=== PATIENT | female | born 1955 | race Caucasian/White ===

== ENCOUNTER 2017-07-23 09:07 | Day surgery (SDC) | payer BC, OTHER ==
[2017-07-23] MEDS: NS 1,000 ML IV (09:30)
[2017-07-23] MEDS ORDERED: PROPOFOL 200 MG/20 ML VIAL As Ordered ×2 (10:52→11:07)
== END 2017-07-23 11:42 | disposition home or self-care (01) ==
LOC: M OPP 09:07
DX: Z12.11 Encounter for screening for malignant neoplasm of colon (principal); Z80.0 Family history of malignant neoplasm of digestive organs; K58.9 Irritable bowel syndrome, unspecified; F41.9 Anxiety disorder, unspecified; R51 Headache; Z87.891 Personal history of nicotine dependence; Z79.899 Other long term (current) drug therapy
CPT/HCPCS: G0105

== ENCOUNTER → 2017-10-26 | Outpatient (REF) | payer OTHER ==
[2017-10-26 12:49] LABS: VITAMIN B12 LEVEL 357 PG/ML (247-911)
[2017-10-26 12:50] LABS: FOLATE 19.3 NG/ML (>5.4)
== END ==
LOC: M LAB REF 12:00
DX: R41.3 Other amnesia (principal)

== ENCOUNTER → 2018-01-06 | Outpatient (CLI) | payer BC, OTHER ==
[~2018-01-06] MED LIST: E-Z-GAS II EFFERVESCENT PACKET (SODIUM BICARB./CITRIC ACID/SIMETHICONE) As Ordered; E-Z-HD 98% w/w 340GM SUSP BTL As Ordered; E-Z-PAQUE 96% w/w SUSP 176GM BTL As Ordered
== END ==
LOC: M RAD 09:25
DX: R13.10 Dysphagia, unspecified (principal)
CPT/HCPCS: 74220

== ENCOUNTER 2018-03-08 12:53 | Day surgery (SDC) | payer BC, OTHER ==
[~2018-03-08 12:53] MED LIST changes: -E-Z-GAS II EFFERVESCENT PACKET (SODIUM BICARB./CITRIC ACID/SIMETHICONE) As Ordered; -E-Z-HD 98% w/w 340GM SUSP BTL As Ordered; -E-Z-PAQUE 96% w/w SUSP 176GM BTL As Ordered; +LIDOCAINE 2% INJ 100 MG/5 ML SDV (FOR ANES.) As Ordered; +PROPOFOL 200 MG/20 ML VIAL As Ordered; +fentaNYL 100 MCG/2 ML INJECTION (J3010) As Ordered
[2018-03-08] MEDS ORDERED: NS 1,000 ML IV (13:30)
== END 2018-03-08 15:52 | disposition home or self-care (01) ==
LOC: M OPP 12:53
DX: R13.10 Dysphagia, unspecified (principal); R10.12 Left upper quadrant pain; Q39.4 Esophageal web; K58.9 Irritable bowel syndrome, unspecified; M51.9 Unspecified thoracic, thoracolumbar and lumbosacral intervertebral disc disorder; F41.9 Anxiety disorder, unspecified; R51 Headache; Z87.891 Personal history of nicotine dependence; Z79.899 Other long term (current) drug therapy; Z80.0 Family history of malignant neoplasm of digestive organs
CPT/HCPCS: 43450

== ENCOUNTER → 2018-06-11 | Outpatient (REF) | payer OTHER ==
[~2018-06-11] MED LIST changes: +CLON1TAB8 PO; +HYDR-3363 PO; +HYOS1TAB PO; -LIDOCAINE 2% INJ 100 MG/5 ML SDV (FOR ANES.) As Ordered; +MAGO400T PO; -PROPOFOL 200 MG/20 ML VIAL As Ordered; +PROTPAK PO; +VITA200016 PO; +WELLTAB40 PO; -fentaNYL 100 MCG/2 ML INJECTION (J3010) As Ordered
== END ==
LOC: M WUC 10:12
PROVIDERS: ATTEND Physician Assistant
DX: N39.0 Urinary tract infection, site not specified (principal)

== ENCOUNTER → 2018-09-29 | Outpatient (CLI) | payer BC, OTHER ==
--- NOTE | 2018-09-30 01:06 | REP ---
Clinical: Lateral foot/fifth toe pain Technique: AP, lateral, bilateral oblique views left foot . Findings: Generalized age-related degenerative changes are appreciated. There appears to be a subtle corner fracture at the base of the fifth toe proximal phalanx extending to the articular surface with mild overlying soft tissue swelling. Impression: Subtle intra-articular corner fracture at the base of the fifth toe proximal phalanx. Electronically Signed by Alexandre Luis MD 09/30/2018 12:58 A
== END ==
LOC: M WUC 17:01
PROVIDERS: ATTEND Physician Assistant
DX: S92.516A Nondisplaced fracture of proximal phalanx of unspecified lesser toe(s), initial encounter for closed fracture (principal); X58.XXXA Exposure to other specified factors, initial encounter; Y92.9 Unspecified place or not applicable

== ENCOUNTER → 2018-12-07 | Outpatient (REF) | payer OTHER | LOC: M LAB REF 12:05 | PROVIDERS: ATTEND Physician Assistant | DX: R30.0 Dysuria (principal) ==

== ENCOUNTER → 2019-02-02 | Outpatient (CLI) | payer BC, OTHER ==
[~2019-02-02] MED LIST changes: +GASTROGRAFIN SOLUTION 30ML (Q9963) As Ordered ONE; +ISOVUE-370 76% 100ML VIAL (Q9967) As Ordered ONE
--- NOTE | 2019-02-02 13:20 | REP ---
REASON FOR EXAM: Abdominal pain. There are no prior examinations for comparison either at [facility] or [facility]. CONTRAST: 100 mL Isovue 370. The lung bases are clear. Multiple low density lesions are seen throughout the hepatic parenchyma the largest of which measures approximately 4.4 cm in its greatest dimension and not exhibiting classic peripheral nodular enhancement that would be considered consistent with a hemangioma. Some asymmetric enhancement is seen persisting throughout all phases of dynamic imaging. The next largest lesion is seen in the anterior segment of the right lobe as well and that lesion measures 2.3 cm in its greatest dimension and it too is not exhibiting the classic type of enhancement characteristics of an hepatic hemangioma. The third and smallest lesion is in the posterior segment of the right lobe. This may be exhibiting subtle peripheral nodular enhancement, but only on the most delayed imaging which occurred 2 minutes post initial postcontrast imaging. There is intrahepatic ductal dilatation likely secondary to the patient's cholecystectomy state. The spleen, pancreas, adrenal glands, and kidneys are within normal limits. Incidental note is made of a 7 mm sized nonenhancing low density focus in the superior pole of the left kidney consistent with a simple cyst. The abdominal aorta and paraaortic regions are within normal limits. The bowel loops and their mesenteries are within normal limits. There is no free fluid or free air. CT PELVIS: The bowel loops and their mesenteries are within normal limits. There is no evidence of a mass or adenopathy. There is no free fluid or free air. Bone window technique throughout the exam shows the osseous structures to be within normal limits for the patient's age. IMPRESSION: 1. There are three dominant hepatic lesions as described above and none of which have the defined imaging characteristics consistent with benign hepatic hemangiomas. There is a fourth subcentimeter sized focal area of low density in the posterior segment of the right lobe which is too small for precise CT characterization, but does appear to be enhancing somewhat centrally in a nonspecific fashion. Since I cannot confirm benign hepatic hemangiomas at this time I would suggest followup with pre and post gadolinium enhanced hepatic MRI. 2. There is intrahepatic ductal dilatation which is likely secondary to the patient's post cholecystectomy state. 3. Other findings as described above. Electronically Signed by Kenji Rogel DO 02/02/2019 03:43 P
== END ==
LOC: M RAD 09:55
PROVIDERS: ATTEND Internal Medicine
DX: R10.9 Unspecified abdominal pain (principal)
CPT/HCPCS: 74177; Q9963; Q9967

== ENCOUNTER → 2019-02-14 | Outpatient (CLI) | payer BC, OTHER ==
[~2019-02-14] MED LIST changes: -GASTROGRAFIN SOLUTION 30ML (Q9963) As Ordered ONE; -ISOVUE-370 76% 100ML VIAL (Q9967) As Ordered ONE; +PROHANCE 279.3MG/ML 5ML VIAL (A9576) As Ordered ONE
--- NOTE | 2019-02-14 12:47 | REP ---
MRI LIVER WITH AND WITHOUT CONTRAST: COMPARISON: CT 02/02/2019. TECHNIQUE: Multiple sequences obtained in the axial and coronal planes prior to and following the intravenous administration of 10 mL ProHance. Multiple liver lesions are again seen. At the dome of the liver, the largest lesion is directly adjacent to the inferior vena cava with slightly lobulated oval-shape. It measures about 4.4 x 2.8 cm. An adjacent nodule more posterolaterally at the dome of the liver has a similar shape and measures approximately 2.2 cm in maximum diameter. Just inferior to this, in the posterior segment of the right lobe, there is a 7 mm nodule. Inferiorly in the right lobe, there is a nodule, which measures 1.1 cm. All of these nodules demonstrate hyperintensity on T2 with hypointensity on T1-weighted images. All of these four nodules demonstrate peripheral nodular enhancement on initial post gadolinium sequences with gradual filling in, consistent with hemangiomas. In addition, in the left lobe of the liver, there is a 1 cm nodule, which is hyperintense on T2, but does not demonstrate enhancement. This is consistent with a cyst. Spleen, adrenals and pancreas appear normal. The patient has had a prior cholecystectomy. There is expected mild dilatation of the common bile duct, maximum diameter is approximately 7 mm. There is no pancreatic duct dilatation. Subcentimeter cyst is seen in the upper pole of the left kidney. IMPRESSION: Four nodules in the right lobe of the liver consistent with hemangiomas. There is a cyst in the left lobe of the liver. No suspicious liver lesion. Status post cholecystectomy. Subcentimeter cyst upper pole left kidney. Electronically Signed by Isidro Knox MD 02/15/2019 12:04 A
== END ==
LOC: M RAD 08:48
PROVIDERS: ATTEND Internal Medicine
DX: K76.89 Other specified diseases of liver (principal); N28.1 Cyst of kidney, acquired; Z90.49 Acquired absence of other specified parts of digestive tract
CPT/HCPCS: 74183; A9576

== ENCOUNTER → 2019-11-14 | Outpatient (REF) | payer OTHER ==
[~2019-11-14] MED LIST changes: -PROHANCE 279.3MG/ML 5ML VIAL (A9576) As Ordered ONE
== END ==
LOC: M WUC 15:52
PROVIDERS: ATTEND Physician Assistant
DX: R30.0 Dysuria (principal)

== ENCOUNTER → 2019-12-15 | Outpatient (CLI) | payer BC, OTHER ==
--- NOTE | 2019-12-15 18:37 | REP ---
Clinical: Epigastric and abdominal pain. Technique: Upright view of the chest with supine and upright views of the abdomen and pelvis. Findings: Frontal upright view of the chest demonstrates no acute cardiopulmonary process or free air below the diaphragm to suspect pneumoperitoneum. Supine and upright views of the abdomen and pelvis demonstrate nonspecific bowel gas pattern without obstruction or perforation. No organomegaly. Evidence of prior cholecystectomy noted. Phleboliths identified in the pelvis. Skeletal structures normal for age. Impression: Nonspecific bowel gas pattern. Electronically Signed by Alexandre Luis MD 12/15/2019 06:28 P
== END ==
LOC: M RAD 17:50
PROVIDERS: ATTEND Physician Assistant Medical
DX: R10.9 Unspecified abdominal pain (principal)

== ENCOUNTER → 2019-12-15 | Outpatient (REF) | payer OTHER ==
[2019-12-15 16:05] LABS: APPEARANCE, URINE CLEAR (CLEAR); BACTERIA, URINE AUTO 1+ (NEGATIVE); BILIRUBIN, URINE AUTO NEGATIVE (NEGATIVE); BLOOD, URINE BLOOD NEGATIVE (NEGATIVE); COLOR, URINE STRAW (YELLOW); GLUCOSE, URINE (UA) AUTO NEGATIVE (NEGATIVE); KETONE, URINE AUTO NEGATIVE (NEGATIVE); LEUKOCYTE ESTERASE, URINE AUTO NEGATIVE (NEGATIVE); NITRITE, URINE AUTO NEGATIVE (NEGATIVE); PROTEIN, URINE AUTO NEGATIVE (NEGATIVE); RBC, URINE AUTO 0 /HPF (0-3); SPECIFIC GRAVITY URINE AUTO 1.001 (1.002-1.035); SQUAMOUS EPITHELIAL CELL UR AU 0 /HPF (0-6); UROBILINOGEN, URINE AUTO 0.2 mg/dL (0.0-2.0); WBC, URINE AUTO 0 /HPF (0-3)
== END ==
LOC: M LAB REF 14:52
PROVIDERS: ATTEND Physician Assistant Medical
DX: N39.0 Urinary tract infection, site not specified (principal)

== ENCOUNTER 2020-11-10 13:42 | Emergency (ER) | payer BC, OTHER ==
[~2020-11-10] VITALS: Ht 149.9 cm; Wt 51.4 kg
[2020-11-10 14:48] LABS: BASO % 0.2 % (0.0-1.0); EOS % 0.4 % (0.0-3.0); HEMATOCRIT 39.6 % (36.0-47.0); HEMOGLOBIN 12.3 g/dl (12.0-15.5); LYMPH # 1.1 10^3/uL (1.5-5.0); LYMPH % 13.6 % (24.0-44.0); MEAN CORPUSCULAR HEMOGLOBIN 25.3 pg (27.0-33.0); MEAN CORPUSCULAR HGB CONC 31.1 g/dl (32.0-36.5); MEAN CORPUSCULAR VOLUME 81.3 fl (80.0-96.0); MONO # 0.8 10^3/uL (0.0-0.8); MONO % 9.7 % (2.0-8.0); NEUTROPHILS # 6.1 10^3/uL (1.5-8.5); NEUTROPHILS % 75.9 % (36.0-66.0); PLATELET COUNT, AUTOMATED 300 10^3/uL (150-450); RED BLOOD COUNT 4.87 10^6/uL (4.00-5.40); WHITE BLOOD COUNT 8.1 10^3/uL (4.0-10.0)
[2020-11-10 15:11] LABS: ALBUMIN 3.6 GM/DL (3.2-5.2); BILIRUBIN,DIRECT 0.2 MG/DL (0.0-0.2); BILIRUBIN,TOTAL 0.8 MG/DL (0.2-1.0); TOTAL PROTEIN 7.1 GM/DL (6.4-8.2)
[2020-11-10] MEDS ORDERED: KETOROLAC 30 MG/ML 1ML VIAL IV ONE (15:20)
[2020-11-10] MEDS ORDERED: ONDANSETRON 4MG/2ML VIAL IV ONE (15:20)
[2020-11-10] MEDS ORDERED: NS 1,000 ML IV ONE (15:20)
[2020-11-10] MEDS ORDERED: ISOVUE-370 76% 100ML VIAL As Ordered ONE (15:22)
--- NOTE | 2020-11-10 15:53 | REP ---
INDICATION: severe lower abd pain, hx of IBS. COMPARISON: Comparison CT study February 02, 2019. Comparison MRI examination February 14, 2019.. TECHNIQUE: Helical scanning was acquired and 4 mm axial images are re-formatted. Coronal and sagittal MPR images were generated and reviewed. The contrast enhancement dose is 100 mL of intravenous Isovue 370. FINDINGS: Preliminary digital skate hop radiograph shows clips in right upper quadrant of the abdomen. There are 4 low-density liver lesions again noted consistent with benign hemangiomas. These are in the right lobe of the liver and are unchanged from the February 02, 2019 study. The largest of these measures 4.0 cm in greatest diameter. There is also a small cyst in the left lobe of the liver. This is also unchanged. Normal adrenal glands are seen. No abnormality is noted in the spleen. The pancreas is unremarkable. The common bile duct measures 6 mm in greatest diameter. Cholecystectomy clips are noted in the right upper quadrant. Kidneys enhance symmetrically and are morphologically intact. No retroperitoneal mass or adenopathy is observed. No visceral vascular abnormality is seen. Urinary bladder is intact. The uterus is surgically absent. There is no evidence of free air or free intraperitoneal fluid. No obstructive lesion is seen. The appendix is not directly visualized but there is no inflammatory change in the right lower quadrant to suggest appendicitis. No abdominal wall defect is seen. No bony lesion is appreciated. Bowel gas pattern shows multiple air-filled loops of large and small bowel question ileus versus enteritis. No obstruction is seen. IMPRESSION: Ileus versus enteritis pattern in the bowel gas. No evidence of free air or obstruction. Stable benign hemangiomas of the liver and small hepatic cyst. Otherwise, no acute abdominal or pelvic abnormality <Electronically signed by Francois Becerril > 11/10/20 [id number]
[2020-11-10 17:16] VITALS: BP 112/60
== END 2020-11-10 17:18 | disposition home or self-care (01) ==
LOC: M ED 13:42
DX: R10.84 Generalized abdominal pain (principal); K52.9 Noninfective gastroenteritis and colitis, unspecified; D18.09 Hemangioma of other sites; K76.89 Other specified diseases of liver; F41.9 Anxiety disorder, unspecified; K21.9 Gastro-esophageal reflux disease without esophagitis; Z87.448 Personal history of other diseases of urinary system
CPT/HCPCS: 74177; 80047; 80076; 81001; 83690; 85025; 96361; 96374; 96375; 99284; J1885; J2405; Q9967

== ENCOUNTER → 2020-11-13 | Outpatient (REF) | payer OTHER | LOC: M LAB REF 11:07 | PROVIDERS: ATTEND Internal Medicine | DX: K52.9 Noninfective gastroenteritis and colitis, unspecified (principal) ==

== ENCOUNTER → 2020-12-10 | Outpatient (REF) | payer OTHER | LOC: M LAB REF 16:37 | PROVIDERS: ATTEND Nurse Practitioner Adult Health | DX: M85.9 Disorder of bone density and structure, unspecified (principal) ==

== ENCOUNTER → 2021-05-07 | Outpatient (CLI) | payer MEDICARE, BC, OTHER ==
--- NOTE | 2021-05-07 12:12 | REP ---
INDICATION: CERVICALGIA COMPARISON: None. TECHNIQUE: AP, lateral, flexion/extension, bilateral oblique, swimmer's and open-mouth views. FINDINGS: Age-related osteopenia and moderate to advanced multilevel degenerative changes including endplate sclerosis/heterogeneity, disc space narrowing, osteophytosis and facet arthropathy identified and primarily involving C5-6, C6-7. No acute fracture/compression injury or acute subluxation. Oblique views suggest narrowing of multiple neural foramina. Open mouth view demonstrates normal C1-C2 articulation and odontoid process. IMPRESSION: Osteopenia and moderate to advanced multilevel degenerative spondylosis. <Electronically signed by Alexandre Luis > 05/07/21 [id number]
== END ==
LOC: M WUC 11:43
PROVIDERS: ATTEND Nurse Practitioner Family
DX: M85.88 Other specified disorders of bone density and structure, other site (principal); M47.812 Spondylosis without myelopathy or radiculopathy, cervical region; M54.2 Cervicalgia

== ENCOUNTER → 2021-08-04 | Outpatient (REF) | payer MEDICARE, OTHER | LOC: M LAB REF 16:06 | PROVIDERS: ATTEND Internal Medicine | DX: M85.9 Disorder of bone density and structure, unspecified (principal) ==

== ENCOUNTER → 2021-11-05 | Outpatient (REF) | payer MEDICARE, OTHER | LOC: M LAB REF 11:27 | PROVIDERS: ATTEND Internal Medicine | DX: R71.8 Other abnormality of red blood cells (principal) ==

== ENCOUNTER → 2021-11-12 | Outpatient (CLI) | payer MEDICARE, BC, OTHER | LOC: M WHC 07:05 | PROVIDERS: ATTEND Internal Medicine | DX: K76.89 Other specified diseases of liver (principal); Z90.49 Acquired absence of other specified parts of digestive tract ==

== ENCOUNTER → 2021-12-16 | Outpatient (REF) | payer MEDICARE, BC, OTHER ==
[~2021-12-16] MED LIST changes: +PANT20TA6 PO; +PROL60SO SC; +VITA100093 PO
== END ==
LOC: M LAB REF 16:54
PROVIDERS: ATTEND Internal Medicine
DX: Z01.810 Encounter for preprocedural cardiovascular examination (principal)

== ENCOUNTER → 2021-12-21 | Outpatient (CLI) | payer MEDICARE, BC, OTHER | LOC: M LABSMTC 11:48 | PROVIDERS: ATTEND Anesthesiology | DX: Z01.812 Encounter for preprocedural laboratory examination (principal); Z20.822 Contact with and (suspected) exposure to COVID-19 ==

== ENCOUNTER 2021-12-25 08:18 | Day surgery (SDC) | payer MEDICARE, BC, OTHER ==
[~2021-12-25] VITALS: Ht 149.9 cm; Wt 54.3 kg
[~2021-12-25 08:18] MED LIST changes: +LIDOCAINE 1% SDV 5ML VIAL As Ordered ONE; +LR 1,000 ML IV SCH; +MAXITROL OPHTH SUSP 5 ML As Ordered ONE; +MIDAZOLAM INJ 2MG/2ML VIAL (J2250 PER 1MG) As Ordered ONE
[2021-12-25] MEDS: TETRACAINE 0.5% OPHTH SOLN 4ML OS SCH ×2 (08:44→08:48)
[2021-12-25] MEDS: FLURBIPROFEN 0.03% OPHTH SOLN 2.5 ML OS SCH ×3 (08:51→09:01)
[2021-12-25] MEDS: CYCLOPENTOLATE 1% OPHTH SOLN 2 ML BTL OS SCH ×3 (08:51→09:01)
[2021-12-25] MEDS: PHENYLEPHRINE 2.5% OPHTH SOL 2ML OS SCH ×3 (08:51→09:01)
[2021-12-25] MEDS ORDERED: ACETYLCHOLINE OPHTH SOLN 1% 2ML (MIOCHOL-E) As Ordered ONE (10:22)
[2021-12-25 10:32] VITALS: BP 124/70
== END 2021-12-25 10:48 | disposition home or self-care (01) ==
LOC: M SDC 08:18
PROVIDERS: ATTEND Ophthalmology
DX: H25.12 Age-related nuclear cataract, left eye (principal); K21.9 Gastro-esophageal reflux disease without esophagitis; F41.9 Anxiety disorder, unspecified; Z79.899 Other long term (current) drug therapy
CPT/HCPCS: 66984; J2250; V2632

== ENCOUNTER → 2022-01-11 | Outpatient (CLI) | payer MEDICARE, BC, OTHER ==
[~2022-01-11] MED LIST changes: -LIDOCAINE 1% SDV 5ML VIAL As Ordered ONE; -LR 1,000 ML IV SCH; -MAXITROL OPHTH SUSP 5 ML As Ordered ONE; -MIDAZOLAM INJ 2MG/2ML VIAL (J2250 PER 1MG) As Ordered ONE
[2022-01-11 12:08] LABS: ALBUMIN 3.5 GM/DL (3.2-5.2); BLOOD UREA NITROGEN 9 MG/DL (7-18); CALCIUM LEVEL 8.9 MG/DL (8.8-10.2); CARBON DIOXIDE LEVEL 28 MEQ/L (21-32); CHLORIDE LEVEL 112 MEQ/L (98-107); CREATININE FOR GFR 0.79 MG/DL (0.55-1.30); GLOMERULAR FILTRATION RATE > 60.0 (>45); GLUCOSE, FASTING 104 MG/DL (70-100); POTASSIUM SERUM 3.8 MEQ/L (3.5-5.1); SODIUM LEVEL 143 MEQ/L (136-145)
== END ==
LOC: M LAB 10:57
PROVIDERS: ATTEND Physician Assistant
DX: U07.1 COVID-19 (principal); R05.9 Cough, unspecified

== ENCOUNTER → 2022-06-17 | Outpatient (REF) | payer MEDICARE, BC, OTHER | LOC: M LAB REF 11:41 | PROVIDERS: ATTEND Internal Medicine | DX: Z79.899 Other long term (current) drug therapy (principal); M81.0 Age-related osteoporosis without current pathological fracture ==

== ENCOUNTER 2022-10-06 09:31 | Day surgery (SDC) | payer MEDICARE, BC, OTHER ==
[~2022-10-06] VITALS: Ht 149.9 cm; Wt 53.5 kg
[~2022-10-06 09:31] MED LIST changes: +ACETYLCHOLINE OPHTH SOLN 1% 2ML (MIOCHOL-E) As Ordered ONE; +CYCLOPENTOLATE 1% OPHTH SOLN 2ML BTL OD SCH; +GABA-1171 PO; +LIDOCAINE 1% SDV 5ML VIAL As Ordered ONE; +OFLOXACIN 0.3 % (OCUFLOX) OPTH SOL 5ML OD SCH; +PHENYLEPHRINE 2.5% OPHTH SOL 2ML OD SCH; +PROPARACAINE 0.5% OPHTH SOL 15ML OD ONE; +TROPICAMIDE 1% OPHTH SOLN 15ML OD SCH
[2022-10-06] MEDS ORDERED: CEFUROXIME 1MG/0.1ML INTRACAMERAL INJ As Ordered ONE (10:11)
[2022-10-06] MEDS ORDERED: fentaNYL 100 MCG/2 ML INJECTION As Ordered ONE (11:49)
[2022-10-06] MEDS ORDERED: MIDAZOLAM INJ 2MG/2ML VIAL As Ordered ONE (11:49)
[2022-10-06 11:56] VITALS: BP 122/67
== END 2022-10-06 12:17 | disposition home or self-care (01) ==
LOC: M SDC 09:31
PROVIDERS: ATTEND Ophthalmology
DX: H25.11 Age-related nuclear cataract, right eye (principal); K21.9 Gastro-esophageal reflux disease without esophagitis; K58.8 Other irritable bowel syndrome; F41.9 Anxiety disorder, unspecified; Z79.899 Other long term (current) drug therapy
CPT/HCPCS: 66984; J0697; J2250; J3010; V2632

== ENCOUNTER → 2022-11-20 | Outpatient (REF) | payer MEDICARE, BC, OTHER ==
[~2022-11-20] MED LIST changes: -ACETYLCHOLINE OPHTH SOLN 1% 2ML (MIOCHOL-E) As Ordered ONE; -CYCLOPENTOLATE 1% OPHTH SOLN 2ML BTL OD SCH; -LIDOCAINE 1% SDV 5ML VIAL As Ordered ONE; -OFLOXACIN 0.3 % (OCUFLOX) OPTH SOL 5ML OD SCH; -PHENYLEPHRINE 2.5% OPHTH SOL 2ML OD SCH; -PROPARACAINE 0.5% OPHTH SOL 15ML OD ONE; -TROPICAMIDE 1% OPHTH SOLN 15ML OD SCH
== END ==
LOC: M LAB REF 12:25
PROVIDERS: ATTEND Internal Medicine
DX: M81.0 Age-related osteoporosis without current pathological fracture (principal); Z79.899 Other long term (current) drug therapy

== ENCOUNTER → 2022-11-23 | Outpatient (CLI) | payer MEDICARE, BC, OTHER | LOC: M WHC 09:24 | PROVIDERS: ATTEND Internal Medicine | DX: K76.89 Other specified diseases of liver (principal); D18.03 Hemangioma of intra-abdominal structures ==

== ENCOUNTER → 2023-04-15 | Outpatient (REF) | payer MEDICARE, OTHER | LOC: M LAB REF 12:21 | PROVIDERS: ATTEND Internal Medicine | DX: Z79.899 Other long term (current) drug therapy (principal) ==

== ENCOUNTER → 2023-11-24 | Outpatient (CLI) | payer MEDICARE, BC | LOC: M RAD 08:48 | PROVIDERS: ATTEND Internal Medicine | DX: K76.89 Other specified diseases of liver (principal); Z90.49 Acquired absence of other specified parts of digestive tract; M81.0 Age-related osteoporosis without current pathological fracture ==

== ENCOUNTER → 2023-11-24 | Outpatient (REF) | payer MEDICARE, OTHER | LOC: M LAB REF 16:28 | PROVIDERS: ATTEND Internal Medicine | DX: M81.0 Age-related osteoporosis without current pathological fracture (principal) ==

== ENCOUNTER → 2024-02-15 | Outpatient (CLI) | payer MEDICARE, OTHER | LOC: M WHC 12:35 | PROVIDERS: ATTEND Orthopaedic Surgery | DX: M79.674 Pain in right toe(s) (principal); M79.89 Other specified soft tissue disorders ==

== ENCOUNTER → 2024-03-24 | Outpatient (REF) | payer MEDICARE, OTHER | LOC: M LAB REF 12:24 | PROVIDERS: ATTEND Internal Medicine | DX: Z79.899 Other long term (current) drug therapy (principal) ==

== ENCOUNTER → 2024-07-13 | Outpatient (CLI) | payer MEDICARE, BC | LOC: M RAD 07:33 | PROVIDERS: ATTEND Internal Medicine | DX: K76.0 Fatty (change of) liver, not elsewhere classified (principal); Z90.49 Acquired absence of other specified parts of digestive tract; K76.89 Other specified diseases of liver ==